=== PATIENT | male | born 1960 | race Caucasian/White ===

== ENCOUNTER 2019-08-20 04:46 | Emergency (ER) | payer OTHER, SELFPAY ==
[2019-08-20 04:51] VITALS: BP 115/55; PULSE 60; RESP 15; TEMP 36.9; O2SAT 92; BMI 33.7
[2019-08-20] MEDS: SODIUM CHLORIDE 0.9% 1,000 ML 1000 ML IV (05:00)
[2019-08-20] MEDS: ONDANSETRON 4 MG/2 ML INJ IV (05:00)
[2019-08-20 05:02] LABS: Add Manual Diff / Slide Review NO; Basophils Absolute Auto 100 /uL (0-100); Basophils Percent Auto 0.4 % (0-2); Eosinophils Absolute Auto 200 /uL (0-450); Eosinophils Percent Auto 1.2 % (2-4); Hematocrit 47.4 % (41-53); Hemoglobin 15.7 g/dL (13.5-17.5); Lymphocytes Absolute Auto 1500 /uL (1100-4500); Lymphocytes Percent Auto 10.9 % (25-40); Mean Corpuscular HGB Conc 33.2 % (30-36); Mean Corpuscular Hemoglobin 29.7 PG (26-34); Mean Corpuscular Volume 89.4 fL (80-100); Monocytes Absolute Auto 1100 /uL (0-900); Monocytes Percent Auto 8.1 % (3-14); Neutrophils Absolute Auto 11200 /uL (1500-7000); Neutrophils Percent Auto 79.4 % (50-75); Platelet Count 229 X10^3/uL (150-400); Red Cell Distribution Width 13.2 % (11.6-14.8); White Blood Cell Count 14.1 X10^3/uL (4.5-11.0)
[2019-08-20 05:08] LABS: Alanine Aminotransferase 25 IU/L (<50); Albumin 4.7 g/dL (3.5-5.0); Albumin Globulin Ratio 1.4 (1.0-2.8); Alkaline Phosphatase 68 U/L (38-126); Aspartate Aminotransferase 35 IU/L (17-59); BUN Creatinine Ratio 28.6 (6-22); Bilirubin Total 1.9 mg/dL (0.2-1.3); Blood Urea Nitrogen 18 mg/dL (9-20); Calcium 9.8 mg/dL (8.4-10.2); Carbon Dioxide 23 mmol/L (22-32); Chloride 102 mmol/L (98-107); Estimated Glomerular Filt Rate > 60.0 mL/min (>60); Globulin 3.4 g/dL (1.7-4.1); Glucose 178 mg/dL (80-110); HEMOLYSIS 36 (0-50); Lipase 59 U/L (23-300); Potassium 3.9 mmol/L (3.4-5.1); Sodium 136 mmol/L (137-145); Total Protein 8.1 g/dL (6.3-8.2)
--- NOTE | 2019-08-20 05:08 | ED.NAVMDI ---
HPI - Nausea/Vomiting/Diarrhea General Chief complaint: Nausea/Vomiting/Diarrhea Stated complaint: nausea, vomiting Time Seen by Provider: 08/20/19 04:50 Source: patient and EMS Mode of arrival: EMS Limitations: no limitations History of Present Illness HPI Narrative: 59-year-old male with a history of ulcer colitis here for evaluation of less than 24 hours of nausea and dry heaving. Patient arrived by EMS further evaluation the symptoms. He has not tried anything for symptoms prior to arrival. He does have abdominal pain that he describes as cramping is related to the dry heaving. No recent travel. Patient's also describes some nausea but has not any vomiting or diarrhea. They did he had the same pizza last evening. Patient received 4 mg of Zofran by EMS prior to arrival. Reports some improvement after this medication. Related Data Previous Rx's Medication Instructions Recorded ondansetron 4 mg PO Q6H PRN #14 tab 08/20/19 Allergies Allergy/AdvReac Type Severity Reaction Status Date / Time No Known Drug Allergies Allergy Verified 08/20/19 04:54 Review of Systems Constitutional Constitutional: Denies fever(s) Cardiovascular Cardiovascular: Denies chest pain and Denies dyspnea Respiratory Respiratory: Denies dyspnea Gastrointestinal Gastrointestinal: Reports abdominal pain, Denies change in stool character, Reports nausea and Reports vomiting Integumentary/Breasts Skin/Breast: Denies rash Neurologic Neurologic: Denies behavioral changes Psychiatric Psychiatric: Denies behavioral changes Hematologic/Lymphatic Hematologic/Lymphatic: Denies easy bleeding and Denies easy bruising Patient History Medical History Ulcerative colitis (Acute) Social History Smoking Status: Never smoker Smoking Status: Never smoker alcohol intake frequency: a few times a month Alcohol type: beer Substance Use Type: does not use Exam Initial Vital Signs Initial Vital Signs: Vital Signs Temperature 98.4 F 08/20/19 04:51 Pulse Rate 60 08/20/19 04:51 Respiratory Rate 15 08/20/19 04:51 Blood Pressure 115/55 L 08/20/19 04:51 Pulse Oximetry 92 08/20/19 04:51 Const General: cooperative Limitations: mental status not altered Resp Effort & Inspection: normal respiratory effort Cardio Rate: regular rate GI Inspection: non-distended Palpation: soft, No firm and tender (Diffusely tender) Skin Lesions: no lesions Rashes: no rashes Neuro General: alert, awake and oriented x3 Speech: speech normal Extrem General: capillary refill normal Psych Appearance: grossly normal and well kempt Course Orders Ordered: ED Orders 08/20/19 04:50 Complete Blood Count AUTO DIFF Stat Comprehensive Metabolic Panel Stat Lipase Stat Discontinued Medications Sodium Chloride (Normal Saline 0.9%) 1,000 mls @ 1,000 mls/hr IV BOLUS ONE Stop: 08/20/19 05:52 Last Infusion: 08/20/19 05:59 Dose: 0 mls/hr Documented by: Admin: 08/20/19 05:00 Dose: 1,000 mls/hr Documented by: DIVINE Ondansetron HCl (Zofran) 4 mg IV NOW ONE Stop: 08/20/19 04:54 Last Admin: 08/20/19 05:00 Dose: 4 mg Documented by: DIVINE Ondansetron HCl (Zofran Odt Prepack) 1 bottle MISC SEEINSTR ONE Stop: 08/20/19 06:14 Vital Signs Vital signs: Vital Signs - 8 hr 08/20/19 04:51 08/20/19 06:13 Temperature 98.4 F Pulse Rate 60 62 Respiratory Rate 15 Blood Pressure 115/55 L Blood Pressure [Left Arm] 115/62 Pulse Oximetry 92 96 MDM - Nausea/Vomiting/Diarrhea Lab Data Attestation: I reviewed the patient's lab results. Result diagrams: 08/20/19 04:50 08/20/19 04:50 Labs: Lab Results 08/20/19 08/20/19 Range/Units 04:50 04:50 WBC 14.1 H (4.5-11.0) X10^3/uL RBC 5.30 (4.5-5.9) X10^6/uL Hgb 15.7 (13.5-17.5) g/dL Hct 47.4 (41-53) % MCV 89.4 (80-100) fL MCH 29.7 (26-34) PG MCHC 33.2 (30-36) % RDW 13.2 (11.6-14.8) % Plt Count 229 (150-400) X10^3/uL Neut % (Auto) 79.4 H (50-75) % Lymph % (Auto) 10.9 L (25-40) % [place] % (Auto) 8.1 (3-14) % Eos % (Auto) 1.2 L (2-4) % Baso % (Auto) 0.4 (0-2) % Neut # (Auto) 60455 H (7684-9697) /uL Lymph # (Auto) 1500 (0270-7416) /uL [place] # (Auto) 1100 H (0-900) /uL Eos # (Auto) 200 (0-450) /uL Baso # (Auto) 100 (0-100) /uL Sodium 136 L (137-145) mmol/L Potassium 3.9 (3.4-5.1) mmol/L Chloride 102 (98-107) mmol/L Carbon Dioxide 23 (22-32) mmol/L BUN 18 (9-20) mg/dL Creatinine 0.63 L (0.66-1.25) mg/dL Estimated GFR > 60.0 (>60) mL/min BUN/Creatinine Ratio 28.6 H (6-22) Glucose 178 H (80-110) mg/dL Calcium 9.8 (8.4-10.2) mg/dL Total Bilirubin 1.9 H (0.2-1.3) mg/dL AST 35 (17-59) IU/L ALT 25 (<50) IU/L Alkaline Phosphatase 68 (38-126) U/L Total Protein 8.1 (6.3-8.2) g/dL Albumin 4.7 (3.5-5.0) g/dL Globulin 3.4 (1.7-4.1) g/dL Albumin/Globulin Ratio 1.4 (1.0-2.8) Lipase 59 (23-300) U/L MDM Narrative Medical decision making narrative: Suspect the leukocytosis is either stress reaction or increase secondary to potential infectious cause of his nausea and vomiting. Patient felt better after fluids and more Zofran here in the ER. Was able to tolerate small amounts of oral intake. No fevers. Feel we could hold on radiologic studies for now. Patient was given return precautions and follow-up instructions. He expressed understanding and agreement. Discharge Plan Departure Patient Disposition: Home Clinical Impression: Nausea and vomiting Qualifiers: Vomiting type: unspecified Vomiting Intractability: unspecified Qualified Code(s): R11.2 - Nausea with vomiting, unspecified Instructions: DI for Nausea -- Adult, DI for Vomiting -- Adult Activity Restrictions/Additional Instructions: Recommend that you increase your fluid intake by drinking small amounts of fluid over longer periods of time. Also recommend that you eat a bland diet over the next day. Do not be surprised if you develop diarrhea over the next 24 hours. Has long as you can maintain your hydration this is normally self limited. Contact your primary provider for follow-up. Prescriptions: New ondansetron 4 mg tablet,disintegrating 4 mg PO Q6H PRN (Reason: nausea and vomiting) Qty: 14 RF: 0
--- NOTE | 2019-08-20 05:50 | PC.NURSE ---
patient given ice chips, tolerated ice chips, given crackers.
[2019-08-20 06:13] VITALS: BP 115/62; PULSE 62; O2SAT 96
--- NOTE | 2019-08-20 06:17 | PC.NURSE ---
patient stated he just doesnt feel hungry and refuses crackers. Provider at bedside.
[2019-08-20] MEDS: ONDANSETRON 4 MG ODT PREPACK 1 BOTTLE MISC (06:18)
== END 2019-08-20 06:34 | disposition home or self-care (01) ==
PROVIDERS: Emergency Provider Emergency Medicine
DX: R11.2 Nausea with vomiting, unspecified (principal); R10.9 Unspecified abdominal pain
CPT/HCPCS: 80053; 83690; 85025; 96361; 96374; 99283; 99284; J2405

== ENCOUNTER → 2021-02-24 09:32 | Outpatient (CLI) | payer OTHER, SELFPAY ==
[2021-02-24 11:35] LABS: Alanine Aminotransferase 33 IU/L (<50); Albumin 4.3 g/dL (3.5-5.0); Albumin Globulin Ratio 1.6 (1.0-2.8); Alkaline Phosphatase 68 U/L (38-126); Aspartate Aminotransferase 32 IU/L (17-59); BUN Creatinine Ratio 17.6 (6-22); Bilirubin Total 2.3 mg/dL (0.2-1.3); Blood Urea Nitrogen 12 mg/dL (9-20); Calcium 10.1 mg/dL (8.4-10.2); Carbon Dioxide 30 mmol/L (22-32); Chloride 103 mmol/L (98-107); Cholesterol 114 mg/dL (140-199); Estimated Glomerular Filt Rate > 60.0 mL/min (>60); Globulin 2.7 g/dL (1.7-4.1); Glucose 111 mg/dL (80-110); HDL Cholesterol 52 mg/dL (40-60); HEMOLYSIS < 15 (0-50); LDL Cholesterol Calculated 50 mg/dL (<100); Potassium 4.9 mmol/L (3.4-5.1); Sodium 140 mmol/L (137-145); Triglycerides 61 mg/dL (35-150)
== END ==
PROVIDERS: Referring Provider Internal Medicine Cardiovascular Disease; Visit Provider Internal Medicine Cardiovascular Disease
DX: I21.4 Non-ST elevation (NSTEMI) myocardial infarction (principal); I25.10 Atherosclerotic heart disease of native coronary artery without angina pectoris
CPT/HCPCS: 36415; 80053; 80061

== ENCOUNTER → 2021-11-19 07:01 | Outpatient (CLI) | payer OTHER, SELFPAY ==
[2021-11-19 08:37] LABS: Alanine Aminotransferase 20 IU/L (<50); Albumin 4.4 g/dL (3.5-5.0); Albumin Globulin Ratio 1.7 (1.0-2.8); Alkaline Phosphatase 71 U/L (38-126); Aspartate Aminotransferase 30 IU/L (17-59); BUN Creatinine Ratio 23.7 (6-22); Bilirubin Total 1.8 mg/dL (0.2-1.3); Blood Urea Nitrogen 14 mg/dL (9-20); Calcium 9.4 mg/dL (8.4-10.2); Carbon Dioxide 25 mmol/L (22-32); Chloride 106 mmol/L (98-107); Cholesterol 127 mg/dL (140-199); Estimated Glomerular Filt Rate > 60 mL/min (>60); Globulin 2.6 g/dL (1.7-4.1); Glucose 104 mg/dL (80-110); HDL Cholesterol 62 mg/dL (40-60); HEMOLYSIS < 15 (0-50); LDL Cholesterol Calculated 49 mg/dL (<100); Potassium 4.4 mmol/L (3.4-5.1); Sodium 139 mmol/L (137-145); Triglycerides 78 mg/dL (35-150)
== END ==
PROVIDERS: Referring Provider Internal Medicine Cardiovascular Disease; Visit Provider Internal Medicine Cardiovascular Disease
DX: E78.5 Hyperlipidemia, unspecified (principal); I25.10 Atherosclerotic heart disease of native coronary artery without angina pectoris
CPT/HCPCS: 36415; 80053; 80061

== ENCOUNTER 2022-02-25 12:30 | Outpatient (RCR) | payer OTHER, SELFPAY | END 2022-02-25 14:30 | LOC: CAR 12:30 | PROVIDERS: Referring Provider Internal Medicine Cardiovascular Disease; Visit Provider Internal Medicine Cardiovascular Disease | DX: Z95.5 Presence of coronary angioplasty implant and graft (principal); Z95.1 Presence of aortocoronary bypass graft | CPT/HCPCS: 93798 ==

== ENCOUNTER 2022-12-06 20:46 | Emergency (ER) | payer OTHER, SELFPAY ==
[2022-12-06] VITALS (16 sets, daily range): BP systolic 104–130; BP diastolic 55–78; PULSE 62–69; RESP 16–26; TEMP 37.7–38.2; O2SAT 93–98; BMI 34.7
--- NOTE | 2022-12-06 20:50 | ED_ITS ---
HPI - General Adult General Chief complaint: Syncope Stated complaint: Syncope Time Seen by Provider: 12/06/22 20:55 History of Present Illness HPI narrative: 62-year-old male with history of hypertension hyperlipidemia presents by EMS for evaluation of a syncopal episode. He states that he had been feeling in his normal state of health. He admits that he has been rather constipated lately and was straining on the toilet and was unsuccessful in having a bowel movement. He then became significantly nauseated and nails and from the toilet and felt like he was going to vomit at which point he had a syncopal episode that was brief and absent of any associated injuries. His found him and states that he very quickly cup and returned normal at which point EMS was notified. P atgiovany states that at his baseline his heart rate is usually in the 40s and 50s. When EMS arrived was bradycardic but also found to be hypotensive initially in the 80s but after fluid bolus returned to normal prior to his arrival. He denies any headache or blurred vision, no chest pain or shortness of breath. No nausea or vomiting. No change in medications or diet Related Data Home Medications Medication Instructions Recorded Confirmed aspirin 81 mg tablet,delayed 81 mg PO DAILY 03/14/22 03/14/22 release atorvastatin PO 03/14/22 03/14/22 losartan PO 03/14/22 03/14/22 methylamine PO 03/14/22 Allergies Allergy/AdvReac Type Severity Reaction Status Date / Time No Known Drug Allergies Allergy Verified 03/14/22 16:26 Review of Systems Review of Systems Narrative: GENERAL: Denies chills, fatigue, malaise, fever, sweats. HEENT: Denies sinus pain, ear pain, sore throat, difficulty swallowing, dizziness. RESPIRATORY: Denies dyspnea, cough, wheezing, hemoptysis, sputum. CARDIOVASCULAR: See HPI GASTROINTESTINAL: See HPI : Denies dysuria, frequency, incontinence, hematuria, urinary retention. MUSCULOSKELETAL: denies weakness, joint pain, or bony pain SKIN: Denies rash, skin lesions, or other NEUROLOGIC: Denies weakness, headache, numbness, change in speech, confusion, seizures, incoordination. PSYCHIATRIC: No concerning psychosocial issues. 12 point review of systems is negative except for those stated above Patient History Medical History COVID-19 Ulcerative colitis Social History Smoking Status: Former smoker Smoking Status: Former smoker (Quit 45 years ago ) alcohol intake frequency: a few times a month Alcohol type: beer Substance Use Type: does not use Exam Narrative Exam Narrative: GENERAL: [62] year old patient appears stated age. Well-developed patient, in mild distress. HEAD: Atraumatic. Normocephalic. EYES: Pupils equal round and reactive. Extraocular motions intact. No scleral icterus. No injection or drainage. ENT: Nose without bleeding, purulent drainage. Throat without erythema, tonsillar hypertrophy or exudate. Airway patent. NECK: Trachea midline. Non tender CARDIOVASCULAR: Regular rate and rhythm without murmurs, gallops, or rubs. RESPIRATORY: Clear to auscultation. Breath sounds equal bilaterally. No wheezes, rales, or rhonchi. GASTROINTESTINAL: Abdomen soft, non-tender, nondistended. EXTREMITIES: No edema or joint tenderness. BACK: Nontender without deformity or crepitance. No flank tenderness. NEURO: AOx3. SKIN: No rash or erythema of visible areas Initial Vital Signs Initial Vital Signs: Vital Signs Temperature 100.7 F H 12/06/22 20:46 Pulse Rate 64 12/06/22 20:46 Respiratory Rate 16 12/06/22 20:46 Blood Pressure 123/59 L 12/06/22 20:46 Pulse Oximetry 97 12/06/22 20:46 Oxygen Delivery Method Room Air 12/06/22 20:46 Course Orders Ordered: ED Orders 12/06/22 20:50 Complete Blood Count AUTO DIFF Stat Comprehensive Metabolic Panel Stat Lactate (Lactic Acid) Stat Lipase Stat Magnesium Stat 12/06/22 20:52 XR acute abdomen series Stat 12/06/22 20:58 EKG-12 Lead Routine 12/06/22 21:06 Respiratory Panel (Film Array) Stat 12/06/22 22:30 Blood Culture Stat Discontinued Medications Sodium Chloride (Normal Saline 0.9%) 1,000 mls @ 1,000 mls/hr IV BOLUS ONE Stop: 12/06/22 21:50 Last Infusion: 12/06/22 22:02 Dose: 0 mls/hr Documented By: Admin: 12/06/22 21:01 Dose: 1,000 mls/hr Documented By: VENECIA Sodium Chloride (Normal Saline 0.9%) 2,121 mls @ 707 mls/hr 30 ml/kg infuse over 3 hr (2121 ml) IV NOW ONE Stop: 12/07/22 00:47 Last Infusion: 12/07/22 00:30 Dose: 0 mls/hr Documented By: Admin: 12/06/22 22:26 Dose: 707 mls/hr Documented By: VENECIA Vital Signs Vital signs: Vital Signs - 8 hr 12/06/22 20:46 12/06/22 20:50 12/06/22 20:52 Temperature 100.7 F H Pulse Rate 64 65 Pulse Rate [Orthostatic Lying] Pulse Rate [Orthostatic Sitting] Pulse Rate [Orthostatic Standing] Respiratory Rate 16 Blood Pressure 123/59 L 119/68 Blood Pressure [Orthostatic Lying] Blood Pressure [Orthostatic Sitting] Blood Pressure [Orthostatic Standing] Pulse Oximetry 97 95 Oxygen Delivery Method Room Air 12/06/22 20:52 12/06/22 21:00 12/06/22 21:00 Temperature Pulse Rate 63 65 Pulse Rate [Orthostatic Lying] Pulse Rate [Orthostatic Sitting] Pulse Rate [Orthostatic Standing] Respiratory Rate 19 17 Blood Pressure 118/78 Blood Pressure [Orthostatic Lying] Blood Pressure [Orthostatic Sitting] Blood Pressure [Orthostatic Standing] Pulse Oximetry 98 96 Oxygen Delivery Method 12/06/22 21:15 12/06/22 21:15 12/06/22 21:40 Temperature Pulse Rate 65 Pulse Rate [Orthostatic Lying] Pulse Rate [Orthostatic Sitting] Pulse Rate [Orthostatic Standing] Respiratory Rate 26 H Blood Pressure 104/55 L 109/63 Blood Pressure [Orthostatic Lying] Blood Pressure [Orthostatic Sitting] Blood Pressure [Orthostatic Standing] Pulse Oximetry 93 Oxygen Delivery Method 12/06/22 21:40 12/06/22 21:45 12/06/22 21:45 Temperature Pulse Rate 63 62 Pulse Rate [Orthostatic Lying] Pulse Rate [Orthostatic Sitting] Pulse Rate [Orthostatic Standing] Respiratory Rate 23 24 Blood Pressure 115/62 Blood Pressure [Orthostatic Lying] Blood Pressure [Orthostatic Sitting] Blood Pressure [Orthostatic Standing] Pulse Oximetry 94 95 Oxygen Delivery Method 12/06/22 22:00 12/06/22 22:00 12/06/22 22:15 Temperature Pulse Rate 62 64 Pulse Rate [Orthostatic Lying] Pulse Rate [Orthostatic Sitting] Pulse Rate [Orthostatic Standing] Respiratory Rate 24 21 Blood Pressure 115/65 Blood Pressure [Orthostatic Lying] Blood Pressure [Orthostatic Sitting] Blood Pressure [Orthostatic Standing] Pulse Oximetry 95 97 Oxygen Delivery Method Room Air 12/06/22 22:15 12/06/22 22:30 12/06/22 22:31 Temperature Pulse Rate 64 65 Pulse Rate [Orthostatic Lying] Pulse Rate [Orthostatic Sitting] Pulse Rate [Orthostatic Standing] Respiratory Rate 24 20 Blood Pressure 118/65 Blood Pressure [Orthostatic Lying] Blood Pressure [Orthostatic Sitting] Blood Pressure [Orthostatic Standing] Pulse Oximetry 97 97 Oxygen Delivery Method 12/06/22 22:31 12/06/22 22:45 12/06/22 22:45 Temperature Pulse Rate 65 Pulse Rate [Orthostatic Lying] Pulse Rate [Orthostatic Sitting] Pulse Rate [Orthostatic Standing] Respiratory Rate 24 Blood Pressure 126/66 130/65 Blood Pressure [Orthostatic Lying] Blood Pressure [Orthostatic Sitting] Blood Pressure [Orthostatic Standing] Pulse Oximetry 95 Oxygen Delivery Method 12/06/22 23:00 12/06/22 23:00 12/06/22 23:15 Temperature 99.8 F H Pulse Rate 66 Pulse Rate [Orthostatic Lying] Pulse Rate [Orthostatic Sitting] Pulse Rate [Orthostatic Standing] Respiratory Rate 24 Blood Pressure 125/67 122/70 Blood Pressure [Orthostatic Lying] Blood Pressure [Orthostatic Sitting] Blood Pressure [Orthostatic Standing] Pulse Oximetry 95 Oxygen Delivery Method Room Air 12/06/22 23:15 12/06/22 23:30 12/06/22 23:30 Temperature Pulse Rate 69 64 Pulse Rate [Orthostatic Lying] Pulse Rate [Orthostatic Sitting] Pulse Rate [Orthostatic Standing] Respiratory Rate 21 22 Blood Pressure 130/69 Blood Pressure [Orthostatic Lying] Blood Pressure [Orthostatic Sitting] Blood Pressure [Orthostatic Standing] Pulse Oximetry 97 95 Oxygen Delivery Method 12/06/22 23:45 12/06/22 23:45 12/07/22 00:28 Temperature Pulse Rate 64 Pulse Rate [Orthostatic Lying] 64 Pulse Rate [Orthostatic Sitting] 69 Pulse Rate [Orthostatic Standing] 69 Respiratory Rate 24 Blood Pressure 128/67 Blood Pressure [Orthostatic Lying] 139/66 Blood Pressure [Orthostatic Sitting] 132/71 Blood Pressure [Orthostatic Standing] 141/69 H Pulse Oximetry 95 Oxygen Delivery Method Room Air 12/07/22 00:00 12/07/22 00:00 12/07/22 00:15 Temperature Pulse Rate 64 Pulse Rate [Orthostatic Lying] Pulse Rate [Orthostatic Sitting] Pulse Rate [Orthostatic Standing] Respiratory Rate 22 Blood Pressure 125/67 100/51 L Blood Pressure [Orthostatic Lying] Blood Pressure [Orthostatic Sitting] Blood Pressure [Orthostatic Standing] Pulse Oximetry 95 Oxygen Delivery Method 12/07/22 00:15 12/07/22 00:23 12/07/22 00:23 Temperature Pulse Rate 65 63 Pulse Rate [Orthostatic Lying] Pulse Rate [Orthostatic Sitting] Pulse Rate [Orthostatic Standing] Respiratory Rate 23 21 Blood Pressure 139/66 Blood Pressure [Orthostatic Lying] Blood Pressure [Orthostatic Sitting] Blood Pressure [Orthostatic Standing] Pulse Oximetry 95 97 Oxygen Delivery Method 12/07/22 00:24 12/07/22 00:25 12/07/22 00:25 Temperature Pulse Rate 67 Pulse Rate [Orthostatic Lying] Pulse Rate [Orthostatic Sitting] Pulse Rate [Orthostatic Standing] Respiratory Rate 20 Blood Pressure 132/71 141/69 H Blood Pressure [Orthostatic Lying] Blood Pressure [Orthostatic Sitting] Blood Pressure [Orthostatic Standing] Pulse Oximetry 96 Oxygen Delivery Method Medical Decision Making Lab Data 12/06/22 20:50 12/06/22 20:50 Labs: Lab Results 12/06/22 12/06/22 12/06/22 Range/Units 20:50 20:50 20:50 WBC 9.4 (4.5-11.0) X10^3/uL RBC 5.08 (4.5-5.9) X10^6/uL Hgb 15.8 (13.5-17.5) g/dL Hct 46.7 (41-53) % MCV 92.1 (80-100) fL MCH 31.2 (26-34) PG MCHC 33.9 (30-36) % RDW 13.2 (11.6-14.8) % Plt Count 192 (150-400) X10^3/uL Neut % (Auto) Not Reportable Lymph % (Auto) Not Reportable [place] % (Auto) Not Reportable Eos % (Auto) Not Reportable Baso % (Auto) Not Reportable Lymph # (Auto) Not Reportable [place] # (Auto) Not Reportable Baso # (Auto) Not Reportable Total Counted 100 Seg Neutrophils % 62.0 (38-70) % Band Neutrophils % 3.0 (3-7) % Lymphocytes % (Manual) 15.0 L (25-45) % Monocytes % (Manual) 20.0 H (2-11) % Neutrophils # (Manual) 6110 H (3750-9213) /uL Plt Morphology Comment RBC Morphology Normal morphology Sodium 135 L (137-145) mmol/L Potassium 3.9 (3.4-5.1) mmol/L Chloride 98 (98-107) mmol/L Carbon Dioxide 28 (22-32) mmol/L BUN 11 (9-20) mg/dL Creatinine 0.76 (0.66-1.25) mg/dL Estimated GFR > 60 (>60) mL/min BUN/Creatinine Ratio 14.5 (6-22) Glucose 136 H (80-110) mg/dL Lactate 2.5 H (0.7-2.1) mmol/L Calcium 9.0 (8.4-10.2) mg/dL Magnesium 1.8 (1.6-2.3) mg/dL Total Bilirubin 1.7 H (0.2-1.3) mg/dL AST 40 (17-59) IU/L ALT 26 (<50) IU/L Alkaline Phosphatase 57 (38-126) U/L Total Protein 7.9 (6.3-8.2) g/dL Albumin 4.3 (3.5-5.0) g/dL Globulin 3.6 (1.7-4.1) g/dL Albumin/Globulin Ratio 1.2 (1.0-2.8) Lipase 55 (23-300) U/L Chlamy pneumoniae PCR (Not Detect) Adenovirus (PCR) (Not Detect) B. pertussis DNA (PCR) (Not Detecte) B.parapertussis DNA PCR (Not Detecte) Coronavirus OC43 (PCR) (Not Detect) Coronavirus HKU1 (PCR) (Not Detect) Coronavirus 229E (PCR) (Not Detect) SARS-CoV-2 (PCR) (Not Detecte) Coronavirus NL63 (PCR) (Not Detect) Human Metapneumovir PCR (Not Detect) Influenza Type A (PCR) (Not Detect) Influenza Type B (PCR) (Not Detect) M. pneumoniae (PCR) (Not Detect) Parainfluenza 1 (PCR) (Not Detect) Parainfluenza 2 (PCR) (Not Detect) Parainfluenza 3 (PCR) (Not Detect) Parainfluenza 4 (PCR) (Not Detect) RSV (PCR) (Not Detect) Entero/Rhino (PCR) (Not Detect) 12/06/22 12/06/22 Range/Units 21:06 23:11 WBC (4.5-11.0) X10^3/uL RBC (4.5-5.9) X10^6/uL Hgb (13.5-17.5) g/dL Hct (41-53) % MCV (80-100) fL MCH (26-34) PG MCHC (30-36) % RDW (11.6-14.8) % Plt Count (150-400) X10^3/uL Neut % (Auto) Lymph % (Auto) [place] % (Auto) Eos % (Auto) Baso % (Auto) Lymph # (Auto) [place] # (Auto) Baso # (Auto) Total Counted Seg Neutrophils % (38-70) % Band Neutrophils % (3-7) % Lymphocytes % (Manual) (25-45) % Monocytes % (Manual) (2-11) % Neutrophils # (Manual) (3625-8563) /uL Plt Morphology Comment RBC Morphology Sodium (137-145) mmol/L Potassium (3.4-5.1) mmol/L Chloride (98-107) mmol/L Carbon Dioxide (22-32) mmol/L BUN (9-20) mg/dL Creatinine (0.66-1.25) mg/dL Estimated GFR (>60) mL/min BUN/Creatinine Ratio (6-22) Glucose (80-110) mg/dL Lactate 1.0 (0.7-2.1) mmol/L Calcium (8.4-10.2) mg/dL Magnesium (1.6-2.3) mg/dL Total Bilirubin (0.2-1.3) mg/dL AST (17-59) IU/L ALT (<50) IU/L Alkaline Phosphatase (38-126) U/L Total Protein (6.3-8.2) g/dL Albumin (3.5-5.0) g/dL Globulin (1.7-4.1) g/dL Albumin/Globulin Ratio (1.0-2.8) Lipase (23-300) U/L Chlamy pneumoniae PCR Not detected (Not Detect) Adenovirus (PCR) Not detected (Not Detect) B. pertussis DNA (PCR) Not detected (Not Detecte) B.parapertussis DNA PCR Not detected (Not Detecte) Coronavirus OC43 (PCR) Not detected (Not Detect) Coronavirus HKU1 (PCR) Not detected (Not Detect) Coronavirus 229E (PCR) Not detected (Not Detect) SARS-CoV-2 (PCR) Not detected (Not Detecte) Coronavirus NL63 (PCR) Not detected (Not Detect) Human Metapneumovir PCR Not detected (Not Detect) Influenza Type A (PCR) Not detected (Not Detect) Influenza Type B (PCR) Not detected (Not Detect) M. pneumoniae (PCR) Not detected (Not Detect) Parainfluenza 1 (PCR) Not detected (Not Detect) Parainfluenza 2 (PCR) Not detected (Not Detect) Parainfluenza 3 (PCR) Not detected (Not Detect) Parainfluenza 4 (PCR) Not detected (Not Detect) RSV (PCR) Not detected (Not Detect) Entero/Rhino (PCR) Not detected (Not Detect) Urine Dip Bedside Urine Glucose Negative Bedside Urine Bilirubin - Negative Bedside Urine Ketone +/- 5 Urine Specific [place] 1.020 Bedside Urine Occult Blood - Negative Bedside Urine pH 6 Bedside Urine Protein +/- 15 Bedside Urine Urobilinogen - Negative Bedside Urine Nitrite - Negative Bedside Urine Leukocytes - Negative Esterase Point of care testing: Urine Dip Bedside Urine Glucose Negative Bedside Urine Bilirubin - Negative Bedside Urine Ketone +/- 5 Urine Specific [place] 1.020 Bedside Urine Occult Blood - Negative Bedside Urine pH 6 Bedside Urine Protein +/- 15 Bedside Urine Urobilinogen - Negative Bedside Urine Nitrite - Negative Bedside Urine Leukocytes - Negative Esterase MDM Narrative Medical decision making narrative: [62] year old patient presents with syncopal episode Multiple etiologies for patient's symptoms considered including, but not limited to: [Vasovagal versus other] Prior Charts reviewed in our EMR Primary Historian: patient Labs reviewed and interpreted by myself: No significant abnormalities requiring intervention, no leukocytosis or left shift, no signs of anemia. Initial lactate 2.5, improves to 1.0 after fluid resuscitation. Infectious process and sepsis considered extremely unlikely. Imaging reviewed: Acute abdominal series demonstrates a moderate stool burden, no signs of pneumonia Patient's symptoms improved over duration of stay with above-stated therapies. Patient feels significant improvement, orthostatics are normal, ambulatory in the department. Multiple diagnoses considered as noted above. Most reasonable explanation is increased vagal tone from straining on the toilet with episode of nausea combined with patient's normal low resting heart rate. His exam, response to therapies labs and imaging are very reassuring and no further evaluation or treatment needed Findings and discharge diagnosis discussed with patient/family followed by verbalization of understanding Return precautions discussed with patient/family whom verbalize understanding of diagnosis and plan Discharge Plan Departure Patient Disposition: Home Clinical Impression: Syncope due to orthostatic hypotension Instructions: DI for Syncope in Adults (Fainting) Activity Restrictions/Additional Instructions: *You have been diagnosed with [syncope.] *What to do: *Please continue to take your regular medications as directed. [ ] New medication prescriptions sent to your pharmacy: [ ] [ ] New medication written as a paper prescription [ ] No new medications given *Please follow up with your primary care provider in 2-3 days, call for an appointment. Let them know you were seen in the Emergency Department and that we ask that you be seen in follow up. We will electronically transmit a record of today's note if your PCP is in our system *If you do not have a primary care provider please contact the [facility] Resource line at [phone]. They will ask some questions about your medical history and help get you set up with a doctor in the community. *Return to Emergency Department if you should have any new, worsening or concerning symptoms, such as [fever greater than 101 F, shaking chills, worsening pain, persistent vomiting or other bothersome symptoms] Prescriptions: No Action aspirin 81 mg tablet,delayed release (DR/EC) 81 mg PO DAILY atorvastatin PO losartan PO methylamine PO Referrals: Miscellaneous,DoctorMD [Primary Care Provider] - Stand Alone Forms: Patient Portal/API
--- NOTE | 2022-12-06 20:52 | DI.RAD.S_ITS ---
PROCEDURE: XR ACUTE ABDOMEN SERIES INDICATIONS: Abdominal pain, constipation TECHNIQUE: One view chest and two views of the abdomen were acquired. COMPARISON: None. FINDINGS: Surgical changes and devices: Sternotomy wires and mediastinal clips are present. Chest: Lungs are clear. Heart size is mildly enlarged. No pleural effusions. No pneumoperitoneum. Abdomen: Bowel gas pattern is normal. No suspicious calcifications. Visualized solid organ contours appear normal. [id number] stool burden. Bones: No suspicious bony lesions. IMPRESSION: 1. Nonobstructive bowel gas pattern. [id number] stool burden. 2. No acute cardiopulmonary abnormality. Approved by: Weston Roper M.D. on 12/06/2022 at 22:07
[2022-12-06] MEDS: SODIUM CHLORIDE 0.9% 1,000 ML 1000 ML IV (21:01)
--- NOTE | 2022-12-06 21:12 | PC.NURSE ---
Pt has been feeling unwell since Wednesday with chills, sore throat, slight cough, some chest discomfort and nausea. He had one BM this evening was walking around felt nauseous, was kneeling at the toilet when he passed out. Hx of heart attack and bypass surgery.
[2022-12-06 21:19] LABS: Alanine Aminotransferase 26 IU/L (<50); Albumin 4.3 g/dL (3.5-5.0); Albumin Globulin Ratio 1.2 (1.0-2.8); Alkaline Phosphatase 57 U/L (38-126); Aspartate Aminotransferase 40 IU/L (17-59); BUN Creatinine Ratio 14.5 (6-22); Bilirubin Total 1.7 mg/dL (0.2-1.3); Blood Urea Nitrogen 11 mg/dL (9-20); Carbon Dioxide 28 mmol/L (22-32); Chloride 98 mmol/L (98-107); Estimated Glomerular Filt Rate > 60 mL/min (>60); Globulin 3.6 g/dL (1.7-4.1); Glucose 136 mg/dL (80-110); HEMOLYSIS 16 (0-50); Lactate (Lactic Acid) 2.5 mmol/L (0.7-2.1); Lipase 55 U/L (23-300); Magnesium 1.8 mg/dL (1.6-2.3); Potassium 3.9 mmol/L (3.4-5.1); Sodium 135 mmol/L (137-145); Total Protein 7.9 g/dL (6.3-8.2)
[2022-12-06 21:22] LABS: Hematocrit 46.7 % (41-53); Hemoglobin 15.8 g/dL (13.5-17.5); Mean Corpuscular HGB Conc 33.9 % (30-36); Mean Corpuscular Hemoglobin 31.2 PG (26-34); Mean Corpuscular Volume 92.1 fL (80-100); Platelet Count 192 X10^3/uL (150-400); Red Blood Cell Count 5.08 X10^6/uL (4.5-5.9); Red Cell Distribution Width 13.2 % (11.6-14.8); White Blood Cell Count 9.4 X10^3/uL (4.5-11.0)
[2022-12-06 21:41] LABS: Add Manual Diff / Slide Review YES
[2022-12-06 21:42] LABS: Neutrophils Absolute Manual 6110 /uL (3000-5900); Total Cells Counted 100
[2022-12-06 21:43] LABS: RBC Morphology Normal Morphology
[2022-12-06 22:10] LABS: Adenovirus Not Detected (Not Detect); B. parapertussis Not Detected (Not Detecte); Bordetella pertussis Not Detected (Not Detecte); Chlamydophila pneumoniae Not Detected (Not Detect); Coronavirus 229E Not Detected (Not Detect); Coronavirus HKU1 Not Detected (Not Detect); Coronavirus NL 63 Not Detected (Not Detect); Coronavirus OC43 Not Detected (Not Detect); Human Metapneumovirus Not Detected (Not Detect); Human Rhinovirus/Enterovirus Not Detected (Not Detect); Influenza A Not Detected (Not Detect); Influenza B Not Detected (Not Detect); Mycoplasma pneumoniae Not Detected (Not Detect); Parainfluenza Virus 1 Not Detected (Not Detect); Parainfluenza Virus 2 Not Detected (Not Detect); Parainfluenza Virus 3 Not Detected (Not Detect); Parainfluenza Virus 4 Not Detected (Not Detect); Respiratory Syncytial Virus Not Detected (Not Detect); SARS- CoV-2 Not Detected (Not Detecte)
[2022-12-06] MEDS: SODIUM CHLORIDE 0.9% 2,121 ML 707 ML IV (22:26)
[2022-12-06 23:05] LABS: Reflexed Lactate in 2 Hours Y
--- NOTE | 2022-12-06 23:56 | PC.NURSE ---
Pt received a total of 2,121 mls of normal saline as per sepsis protocol fluids and provider direction. Unable to undo initial bolus of normal saline fluids. So total intake is 2,121 mls of normal saline and not 3,121 mls of NS.
[2022-12-07] VITALS: BP 125/67; PULSE 64; RESP 22; O2SAT 95
[2022-12-07 00:15] VITALS: BP 100/51; PULSE 65; RESP 23; O2SAT 95
[2022-12-07 00:23] VITALS: BP 139/66; PULSE 63; RESP 21; O2SAT 97
[2022-12-07 00:24] VITALS: BP 132/71
[2022-12-07 00:25] VITALS: BP 141/69; PULSE 67; RESP 20; O2SAT 96
[2022-12-07 00:28] VITALS: BP 132/71; BP 139/66; BP 141/69; PULSE 64; PULSE 69
--- NOTE | 2022-12-07 00:29 | PC.NURSE ---
Ambulation trial per provider direction. Pt steady on feet. Denies any chest pain, SOB, lightheadedness or dizziness. Provider made aware.
== END 2022-12-07 00:52 | disposition home or self-care (01) ==
PROVIDERS: Emergency Provider Emergency Medicine
DX: I95.1 Orthostatic hypotension (principal); Z79.899 Other long term (current) drug therapy; Z20.822 Contact with and (suspected) exposure to COVID-19
CPT/HCPCS: 36415; 74022; 80053; 81003; 83605; 83690; 83735; 85007; 85025; 87040; 87633; 93005; 96360; 96361; 99284

== ENCOUNTER 2023-04-13 14:27 | Emergency (ER) | payer OTHER, SELFPAY ==
[2023-04-13] VITALS (20 sets, daily range): BP systolic 106–177; BP diastolic 55–97; PULSE 58–67; RESP 19–28; TEMP 37.8; O2SAT 94–97; BMI 34.4
--- NOTE | 2023-04-13 14:33 | DI.RAD.S_ITS ---
PROCEDURE: XR CHEST 1V INDICATIONS: vomiting fever syncope TECHNIQUE: One view of the chest was acquired. COMPARISON: None. FINDINGS: Surgical changes and devices: CABG postsurgical changes. Lungs and pleura: Lungs are clear. No pleural effusions or pneumothorax. Mediastinum: Mediastinal contours appear normal. Heart is mildly enlarged. Bones and chest wall: No suspicious bony lesions. Overlying soft tissues appear unremarkable. IMPRESSION: No acute cardiopulmonary abnormality is seen. Dictated by: Gloria White MD, PhD on 04/13/2023 at 15:31 Approved by: Gloria White MD, PhD on 04/13/2023 at 15:31
[2023-04-13 14:43] LABS: Add Manual Diff / Slide Review NO; Basophils Absolute Auto 100 /uL (0-100); Eosinophils Absolute Auto 200 /uL (0-450); Eosinophils Percent Auto 2.6 % (2-4); Hematocrit 46.3 % (41-53); Hemoglobin 15.8 g/dL (13.5-17.5); Lymphocytes Absolute Auto 1500 /uL (1100-4500); Lymphocytes Percent Auto 20.5 % (25-40); Mean Corpuscular Hemoglobin 31.4 PG (26-34); Mean Corpuscular Volume 92.3 fL (80-100); Monocytes Absolute Auto 1300 /uL (0-900); Monocytes Percent Auto 17.4 % (3-14); Neutrophils Absolute Auto 4300 /uL (1500-7000); Neutrophils Percent Auto 58.5 % (50-75); Platelet Count 176 X10^3/uL (150-400); Red Blood Cell Count 5.02 X10^6/uL (4.5-5.9); Red Cell Distribution Width 13.5 % (11.6-14.8); White Blood Cell Count 7.3 X10^3/uL (4.5-11.0)
[2023-04-13] MEDS: SODIUM CHLORIDE 0.9% 1,000 ML 1000 ML IV (14:45)
[2023-04-13] MEDS: ONDANSETRON 4 MG/2 ML INJ IV (14:45)
[2023-04-13 14:53] LABS: Alanine Aminotransferase 31 IU/L (<50); Albumin 4.5 g/dL (3.5-5.0); Albumin Globulin Ratio 1.4 (1.0-2.8); Alkaline Phosphatase 55 U/L (38-126); Aspartate Aminotransferase 38 IU/L (17-59); BUN Creatinine Ratio 17.6 (6-22); Bilirubin Total 1.9 mg/dL (0.2-1.3); Blood Urea Nitrogen 12 mg/dL (9-20); Calcium 9.4 mg/dL (8.4-10.2); Carbon Dioxide 28 mmol/L (22-32); Chloride 98 mmol/L (98-107); Creatine Kinase 89 U/L (55-170); Estimated Glomerular Filt Rate > 60 mL/min (>60); Globulin 3.2 g/dL (1.7-4.1); Glucose 100 mg/dL (80-110); HEMOLYSIS 48 (0-50); Lipase 63 U/L (23-300); Potassium 4.1 mmol/L (3.4-5.1); Sodium 135 mmol/L (137-145); Total Protein 7.7 g/dL (6.3-8.2)
[2023-04-13 15:05] LABS: NT-proBNP (BNP-Adult 18+) 489 pg/mL (<125); Troponin I < 0.012 ng/mL (0.01-0.034)
[2023-04-13 15:10] LABS: Procalcitonin 0.05 ng/mL (<0.5)
[2023-04-13 15:49] LABS: Adenovirus Not Detected (Not Detect); B. parapertussis Not Detected (Not Detecte); Bordetella pertussis Not Detected (Not Detect); Chlamydophila pneumoniae Not Detected (Not Detect); Coronavirus 229E Not Detected (Not Detect); Coronavirus HKU1 Not Detected (Not Detect); Coronavirus NL 63 Not Detected (Not Detect); Coronavirus OC43 Not Detected (Not Detect); Human Metapneumovirus Not Detected (Not Detect); Human Rhinovirus/Enterovirus Not Detected (Not Detect); Influenza A Not Detected (Not Detect); Influenza B Not Detected (Not Detect); Mycoplasma pneumoniae Not Detected (Not Detect); Parainfluenza Virus 1 Not Detected (Not Detect); Parainfluenza Virus 2 Not Detected (Not Detect); Parainfluenza Virus 3 Not Detected (Not Detect); Parainfluenza Virus 4 Not Detected (Not Detect); Respiratory Syncytial Virus Not Detected (Not Detect)
[2023-04-13 15:51] LABS: SARS- CoV-2 Detected (Not Detecte)
--- NOTE | 2023-04-13 18:04 | ED_ITS ---
HPI - Syncope General Chief Complaint: Syncope Stated Complaint: syncope Time Seen by Provider: 04/13/23 14:32 Source: patient and EMS Mode of arrival: EMS Limitations: no limitations History of Present Illness HPI narrative: Patient is a 62-year-old male history of coronary artery disease with stent in three-vessel CABG presenting today with syncopal episode. reports that he was feeling well yesterday he had upper respiratory like symptoms some nasal congestion sore throat he had a fever last night. He was in [place] and driving home. He got very nauseous and lightheaded and passed out in the car. EMS reports that when they had him he very nauseous threw up and passed out again. They said that he had a shaking like episode seizure-like activity however he was not postictal or confused in the episode only lasted for a couple of seconds. Patient arrives pale diaphoretic and ashen. He actually quickly responded IV fluids. He has previously passed out and had orthostatic hypotension. That happens sometimes when he has a Valsalva maneuver straining on the toilet. Related Data Home Medications Medication Instructions Recorded Confirmed aspirin 81 mg tablet,delayed 81 mg PO DAILY 03/14/22 03/14/22 release atorvastatin PO 03/14/22 03/14/22 losartan PO 03/14/22 03/14/22 methylamine PO 03/14/22 Previous Rx's Medication Instructions Recorded ondansetron 4 mg disintegrating 4 mg PO Q8H PRN nausea and 04/13/23 tablet vomiting #20 tabs Allergies Allergy/AdvReac Type Severity Reaction Status Date / Time No Known Drug Allergies Allergy Verified 03/14/22 16:26 Review of Systems Review of Systems ROS Unobtainable: All systems reviewed & are unremarkable except as noted in HPI and below Patient History Medical History COVID-19 Ulcerative colitis Social History Smoking Status: Former smoker Smoking Status: Former smoker alcohol intake frequency: 0-2 drinks per day Alcohol type: beer Substance Use Type: does not use Exam Initial Vital Signs Initial Vital Signs: Vital Signs Pulse Rate 61 04/13/23 14:31 Pulse Oximetry 95 04/13/23 14:31 GENERAL: Pale diaphoretic alert 62-year-old male HEENT: Head atraumatic,EOMI, pupils reactive, face symmetric, moist mucous membranes CARDIOVASCULAR: Regular rate and rhythm without murmurs, rubs or gallops. RESPIRATORY: Breath sounds equal bilaterally, no wheezes rales or rhonchi. ABDOMEN: Soft, nontender. Normoactive bowel sounds all 4 quadrants. No guarding or rebound. No palpable mass EXTREMITIES: Normal range of motion, no clubbing or edema. Neurovascularly intact NEUROLOGICAL: Alert and oriented x4. Moving all extremities SKIN: Warm, dry, no laceration, no petechiae, no rashes or lesions. Course Orders Ordered: Discontinued Medications Aspirin (Aspirin 81 Mg Chew Tab) 324 mg PO NOW ONE Stop: 04/13/23 14:33 Last Admin: 04/13/23 14:49 Dose: Not Given Documented By: EVAN Sodium Chloride (Normal Saline 0.9%) 1,000 mls @ 1,000 mls/hr IV CONT KAY Last Infusion: 04/13/23 15:40 Dose: Infused Documented By: Admin: 04/13/23 14:45 Dose: 1,000 mls/hr Documented By: EVAN Ondansetron HCl (Ondansetron 4 Mg/2 Ml Inj) 4 mg IV NOW ONE Stop: 04/13/23 14:33 Last Admin: 04/13/23 14:45 Dose: 4 mg Documented By: EVAN Vital Signs Vital signs: Vital Signs - 8 hr 04/13/23 14:31 04/13/23 14:33 04/13/23 15:00 Temperature 100.1 F H Pulse Rate 61 62 58 L Respiratory Rate 20 24 Blood Pressure 141/74 H Pulse Oximetry 95 95 95 Oxygen Delivery Method Room Air 04/13/23 15:01 04/13/23 15:01 04/13/23 15:16 Temperature Pulse Rate 58 L Respiratory Rate 25 H Blood Pressure 106/57 L 109/61 Pulse Oximetry 94 Oxygen Delivery Method Room Air 04/13/23 15:16 04/13/23 15:30 04/13/23 15:30 Temperature Pulse Rate 58 L 59 L Respiratory Rate 22 20 Blood Pressure 110/61 Pulse Oximetry 95 96 Oxygen Delivery Method Room Air 04/13/23 15:45 04/13/23 15:45 04/13/23 16:00 Temperature Pulse Rate 60 Respiratory Rate 20 Blood Pressure 108/61 110/60 Pulse Oximetry 95 Oxygen Delivery Method 04/13/23 16:00 04/13/23 16:15 04/13/23 16:15 Temperature Pulse Rate 60 60 Respiratory Rate 20 20 Blood Pressure 111/60 Pulse Oximetry 95 Oxygen Delivery Method 04/13/23 16:30 04/13/23 16:30 Temperature Pulse Rate 60 Respiratory Rate 20 Blood Pressure 116/62 Pulse Oximetry 94 Oxygen Delivery Method Room Air MDM - Syncope Lab Data 04/13/23 14:34 04/13/23 14:34 Labs: Lab Results 04/13/23 Range/Units 14:34 WBC 7.3 (4.5-11.0) X10^3/uL RBC 5.02 (4.5-5.9) X10^6/uL Hgb 15.8 (13.5-17.5) g/dL Hct 46.3 (41-53) % MCV 92.3 (80-100) fL MCH 31.4 (26-34) PG MCHC 34.0 (30-36) % RDW 13.5 (11.6-14.8) % Plt Count 176 (150-400) X10^3/uL Neut % (Auto) 58.5 (50-75) % Lymph % (Auto) 20.5 L (25-40) % Nelson % (Auto) 17.4 H (3-14) % Eos % (Auto) 2.6 (2-4) % Baso % (Auto) 1.0 (0-2) % Neut # (Auto) 4300 (8521-7655) /uL Lymph # (Auto) 1500 (3672-6229) /uL Nelson # (Auto) 1300 H (0-900) /uL Eos # (Auto) 200 (0-450) /uL Baso # (Auto) 100 (0-100) /uL Sodium 135 L (137-145) mmol/L Potassium 4.1 (3.4-5.1) mmol/L Chloride 98 (98-107) mmol/L Carbon Dioxide 28 (22-32) mmol/L BUN 12 (9-20) mg/dL Creatinine 0.68 (0.66-1.25) mg/dL Estimated GFR > 60 (>60) mL/min BUN/Creatinine Ratio 17.6 (6-22) Glucose 100 (80-110) mg/dL Calcium 9.4 (8.4-10.2) mg/dL Total Bilirubin 1.9 H (0.2-1.3) mg/dL AST 38 (17-59) IU/L ALT 31 (<50) IU/L Alkaline Phosphatase 55 (38-126) U/L Total Creatine Kinase 89 (55-170) U/L Troponin I < 0.012 (0.01-0.034) ng/mL NT-Pro-B Natriuret Pep 489 H (<125) pg/mL Total Protein 7.7 (6.3-8.2) g/dL Albumin 4.5 (3.5-5.0) g/dL Globulin 3.2 (1.7-4.1) g/dL Albumin/Globulin Ratio 1.4 (1.0-2.8) Lipase 63 (23-300) U/L Procalcitonin 0.05 (<0.5) ng/mL Chlamy pneumoniae PCR Not detected (Not Detect) Adenovirus (PCR) Not detected (Not Detect) B.parapertussis DNA PCR Not detected (Not Detecte) Coronavirus OC43 (PCR) Not detected (Not Detect) Coronavirus HKU1 (PCR) Not detected (Not Detect) Coronavirus 229E (PCR) Not detected (Not Detect) SARS-CoV-2 (PCR) Detected H (Not Detecte) Coronavirus NL63 (PCR) Not detected (Not Detect) Human Metapneumovir PCR Not detected (Not Detect) Influenza Type A (PCR) Not detected (Not Detect) Influenza Type B (PCR) Not detected (Not Detect) M. pneumoniae (PCR) Not detected (Not Detect) Parainfluenza 1 (PCR) Not detected (Not Detect) Parainfluenza 2 (PCR) Not detected (Not Detect) Parainfluenza 3 (PCR) Not detected (Not Detect) Parainfluenza 4 (PCR) Not detected (Not Detect) RSV (PCR) Not detected (Not Detect) Entero/Rhino (PCR) Not detected (Not Detect) Point of Care Testing Glucose POC 114 Imaging Data Chest x-ray: Radiologist's Impression: PROCEDURE: XR CHEST 1V INDICATIONS: vomiting fever syncope TECHNIQUE: One view of the chest was acquired. COMPARISON: None. FINDINGS: Surgical changes and devices: CABG postsurgical changes. Lungs and pleura: Lungs are clear. No pleural effusions or pneumothorax. Mediastinum: Mediastinal contours appear normal. Heart is mildly enlarged. Bones and chest wall: No suspicious bony lesions. Overlying soft tissues appear unremarkable. IMPRESSION: No acute cardiopulmonary abnormality is seen. Dictated by: Gloria White MD, PhD on 04/13/2023 at 15:31 ECG Data Interpretation: Normal sinus rhythm, PVCs noted no ST changes MDM Narrative Medical decision making narrative: Patient is 62-year-old male presents today with a syncopal episode. He appeared very ill upon arrival hypotensive and diaphoretic. EMS was concern for seizure- like activity however he was not postictal it did not last very long I suspect more of recurrent syncopal episode. He quickly recovered not hypotensive here. He responded well to IV fluids. Color quickly returned to his face. Monitored in the ED for couple of hours. Blood work reviewed: WBC 7.3, hemoglobin 15, hematocrit 46.3, sodium 135 potassium 4.1, CO2 28, creatinine 0.68, bilirubin 1.7 and 1.8, AST 38, ALT 31, troponin negative, BNP 489, procalcitonin 0.05, respiratory panel positive for COVID Imaging: Chest x-ray no acute cardiopulmonary process At this time patient had upper respiratory like symptoms yesterday to be can feeling nauseous but not really vomiting until later. It sounds as though he had orthostatic vasovagal reaction. He is pale cool and diaphoretic. It quickly resolved. I do not believe that he had a seizure I think he briefly passed out. He overall is doing well. He has not requiring oxygen. At this time I think his symptoms are most likely related to COVID. At this time he does not require admission to the hospital. He has had COVID in the past. He and both understand supportive care only and when to return to the ED. At this time no need for antibiotics He has no focal deficits. At this time I do not think any other imaging is required. He does not have any sort of abdominal pain or pulsating mass unlikely to be an aneurysm also his blood pressure has remained stable and not Discharge Plan Departure Patient Disposition: Home Clinical Impression: COVID-19 Instructions: Orthostatic Hypotension, COVID-19 Activity Restrictions/Additional Instructions: *You have been diagnosed with COVID-19, orthostatic hypotension *What to do: At this time please stay hydrated. Expect to have fever and body aches. Hopefully this does not 7 days but can last up to 2 weeks *Continue to take medications as directed Zofran 4 mg every 8 hours if needed for nausea or vomiting Motrin 600 mg every 6 hours as needed for fever mild to moderate pain Tylenol 650 mg every 4-6 hours if needed for fever or [id number] pain *Follow up with your primary care provider in 2-3 days or call [phone] *Return to ER if you should have increasing weakness recurrent episode of passing out or any new, worsening or concerning symptoms Prescriptions: New ondansetron 4 mg tablet,disintegrating 4 mg PO Q8H PRN (Reason: nausea and vomiting) Qty: 20 0RF No Action aspirin 81 mg tablet,delayed release (DR/EC) 81 mg PO DAILY atorvastatin PO losartan PO methylamine PO Referrals: Miscellaneous,Doctor, [Primary Care Provider] - Stand Alone Forms: Patient Portal/API
== END 2023-04-13 18:35 | disposition home or self-care (01) ==
PROVIDERS: Emergency Provider Emergency Medicine
DX: U07.1 COVID-19 (principal); R11.2 Nausea with vomiting, unspecified; R50.9 Fever, unspecified
CPT/HCPCS: 36415; 71045; 80053; 82550; 82962; 83690; 83880; 84145; 84484; 85025; 87040; 87633; 93005; 96361; 96374; 99284; J2405

== ENCOUNTER → 2023-10-19 14:38 | Outpatient (CLI) | payer OTHER, SELFPAY ==
[2023-10-19 15:46] LABS: COVID-19 CEPHEID 4-PLEX PCR Negative (Negative); Influenza A - CEPHEID Flu A NEGATIVE (NEGATIVE); Influenza B - CEPHEID Flu B NEGATIVE (NEGATIVE); Respiratory Syncytial Virus Negative (Negative)
== END ==
PROVIDERS: Visit Provider Nurse Practitioner Family
DX: J02.9 Acute pharyngitis, unspecified (principal)
CPT/HCPCS: 0241U; 87070